=== PATIENT | female | born 1965 | race Two or more races ===

== ENCOUNTER → 2016-10-07 | Outpatient (CLI) | payer BC | END | disposition home or self-care (01) | LOC: RADPV 10:38 | PROVIDERS: ATTEND Family Medicine | DX: M19.042 Primary osteoarthritis, left hand (principal); M85.842 Other specified disorders of bone density and structure, left hand; M25.562 Pain in left knee ==

== ENCOUNTER → 2017-01-13 | Outpatient (CLI) | payer BC | END | disposition home or self-care (01) | LOC: RADMN 13:00 | PROVIDERS: ATTEND Specialist | DX: M65.842 Other synovitis and tenosynovitis, left hand (principal); M77.9 Enthesopathy, unspecified; M19.042 Primary osteoarthritis, left hand | CPT/HCPCS: 70551; 73218 ==

== ENCOUNTER → 2019-06-28 | Outpatient (CLI) | payer MEDICARE | END | disposition home or self-care (01) | LOC: RADPV 12:29 | PROVIDERS: ATTEND Nurse Practitioner | DX: J98.11 Atelectasis (principal) ==